=== PATIENT | male | born 1985 | race Caucasian/White ===

== ENCOUNTER → 2017-11-02 | Outpatient (CLI) | payer OTHER ==
[2017-11-02 08:05] LABS: ADD MAN DIFF? NO
[2017-11-02 08:23] LABS: BASO # 0.1 x10^3/uL (0.0-0.2); BASO % 2 % (0-3); EOS # 0.3 x10^3/uL (0.0-0.7); EOS % 5 % (0-3); HEMATOCRIT 45.1 % (39.0-53.0); HEMOGLOBIN 15.3 g/dL (13.0-17.5); LYMPH # 1.7 x10^3/uL (1.0-4.8); LYMPH % 33 % (24-48); MEAN CORPUSCULAR HEMOGLOBIN 28 pg (25-35); MEAN CORPUSCULAR HGB CONC 34 g/dL (31-37); MEAN CORPUSCULAR VOLUME 84 fL (79-100); MONO # 0.4 x10^3/uL (0.0-1.1); MONO % 8 % (0-9); NEUT # 2.6 x10^3uL (1.8-7.7); NEUT % 52 % (31-73); PLATELET COUNT 186 x10^3/uL (140-400); RED BLOOD COUNT 5.41 x10^6/uL (4.30-5.70); RED CELL DISTRIBUTION WIDTH 13.3 % (11.5-14.5)
[2017-11-02 08:58] LABS: ALBUMIN 3.9 g/dL (3.4-5.0); ALK PHOS 78 U/L (46-116); ALT (SGPT) 54 U/L (16-63); ANION GAP 9 (6-14); AST (SGOT) 24 U/L (15-37); BLOOD UREA NITROGEN 15 mg/dL (8-26); BUN/CREATININE RATIO 17 (6-20); CALCIUM 8.9 mg/dL (8.5-10.1); CARBON DIOXIDE 28 mmol/L (21-32); CHLORIDE 102 mmol/L (98-107); CHOLESTEROL 244 mg/dL (0-200); CHOLESTEROL/HDL RATIO 4.6; CREATININE 0.9 mg/dL (0.7-1.3); GFR 97.8; GLUCOSE 93 mg/dL (70-99); HDLC 53 mg/dL (40-60); LDLC 178 mg/dL (0-100); NON-HDL CHOLESTEROL 191 mg/dL (0-129); POTASSIUM 4.1 mmol/L (3.5-5.1); SODIUM 139 mmol/L (136-145); TOTAL BILIRUBIN 0.4 mg/dL (0.2-1.0); TOTAL PROTEIN 7.7 g/dL (6.4-8.2); TRIGLYCERIDES 67 mg/dL (0-150); VLDLC 13 mg/dL (0-40)
[2017-11-02 09:08] LABS: THYROID STIM HORMONE (TSH) 2.432 uIU/mL (0.358-3.74)
== END | disposition home or self-care (01) ==
LOC: LAB 07:53
DX: R51 Headache (principal); R79.89 Other specified abnormal findings of blood chemistry
CPT/HCPCS: 36415; 80053; 80061; 84443; 85025